=== PATIENT | female | born 1950 | race Caucasian/White ===

== ENCOUNTER 2016-12-13 07:15 | Emergency (ER) | payer MEDICARE, BC ==
[2016-12-13 07:29] VITALS: BP 144/84
--- NOTE | 2016-12-13 07:38 | UC ---
Skin Complaint HPI - HPI Summary HPI Summary: Left calf bleeding from a small superficial vein that started last night. it is not bleeding now. she is not on blood thinners. - History of Current Complaint Chief Complaint: UCSkin Time Seen by Provider: 12/13/16 07:35 Stated Complaint: LEFT LEG COMPLAINT Hx Obtained From: Patient ?: No Onset/Duration: Sudden Onset Onset Severity: Moderate Current Severity: None Location: Discrete Aggravating: Touch Associated Signs & Symptoms: Positive: Negative - Allergy/Home Medications Allergies/Adverse Reactions: Allergies Allergy/AdvReac Type Severity Reaction Status Date / Time Ciprofloxacin Allergy Rash Verified 12/13/16 07:29 Penicillins [PCN] Allergy Rash Verified 12/13/16 07:29 Home Medications: Home Medications Grape Seed [Grape Seed Extract] 1 tab PO DAILY 12/13/16 [History Confirmed 12/13] Review of Systems All Other Systems Reviewed And Are Negative: Yes PMH/Surg Hx/FS Hx/Imm Hx Previously Healthy: Yes - no bleeding disorders. - Surgical History Surgical History: Yes Surgery Procedure, Year, and Place: 1971 TONSILS, 1984 LAMINECTOMY, 1993 R ANKLE SURGERY, 1998 TOTAL HYSTERECTOMY, BILATERAL KNEE REPLACEMENT 2009 AND 2010 , RIGHT WRIST - Family History Known Family History: Negative: Blood Disorder - Social History Alcohol Use: Rare Substance Use Type: None Smoking Status (MU): Never Smoked Tobacco Physical Exam Triage Information Reviewed: Yes Appearance: Well-Appearing, No Pain Distress, Well-Nourished Vital Signs: Initial Vital Signs Temp 98.4 F 12/13/16 07:17 Pulse 82 12/13/16 07:17 Resp 16 12/13/16 07:17 BP 144/84 12/13/16 07:17 Pulse Ox 98 12/13/16 07:17 Vital Signs Reviewed: Yes Eye Exam: Normal ENT Exam: Normal Neck exam: Normal Respiratory Exam: Normal Cardiovascular Exam: Normal Abdominal Exam: Normal Musculoskeletal Exam: Normal Neurological Exam: Normal Psychological Exam: Normal Skin Exam: Other - left post calf small superficial varicose vein. No current bleeding. Laceration Repair - Laceration Repair 1 Modified For Repair: No Anesthesia Used: 1.0% Lido Additive Used (in ml): Epi Cleansing Completed Via Routine Prep: Yes Irrigation With Pressure Irrigation Device: No Closure Material: Sutures Closure Method: Single Layer Suture Of: Skin - Varicose vein Left post calf bleeding profusely. Stopped easily with two sutures. no complications. bandaged with sneha and telpha and abx ointment. Course/Dx - Diagnoses Provider Diagnoses: bleeding spider vein. Discharge - Discharge Plan Condition: Good Disposition: HOME Patient Education Materials: Care For Your Stitches (ED) Additional Instructions: have a medical provider remove the sutures in 5-10 days.
[2016-12-13] MEDS ORDERED: Lidocain 1% EPI 1:100,000 * 30 ML MDV INJ ONE (07:54)
[2016-12-13] MEDS ORDERED: Lidocaine 1% MPF wEPI 200,000* 30 ML SDV ONE (08:02)
[2016-12-13] MEDS ORDERED: Lidocaine 1% MPF wEPI 200,000* 30 ML SDV INJ ONE (10:28)
== END 2016-12-13 08:20 | disposition home or self-care (01) ==
LOC: UCCORT 07:15
DX: I86.8 Varicose veins of other specified sites (principal); Z88.1 Allergy status to other antibiotic agents; Z88.0 Allergy status to penicillin; Z90.710 Acquired absence of both cervix and uterus; Z96.653 Presence of artificial knee joint, bilateral; Z96.698 Presence of other orthopedic joint implants
CPT/HCPCS: 12001; 99211; G0463; J2001